=== PATIENT | male | born 1945 | race Caucasian/White ===

== ENCOUNTER 2019-12-09 10:37 | Outpatient (CLI) | payer MEDICARE, SELFPAY ==
--- NOTE | ~2019-12-09 | MR_ITS ---
EXAMINATION: MR lumbar spine wo con DATE: 12/09/2019 11:58 INDICATION: Low back pain. TECHNIQUE: Magnetic resonance imaging (MRI) of the lumbar spine was performed without intravenous con trast. Sequences included sagittal T2-weighted FSE, sagittal T2-weighted FS FSE, sagittal T1-weighted FSE, and axial T2-weighted FSE. COMPARISON: Lumbar spine MRI 12/12/2017 FINDINGS: There is 10 degrees dextroscoliosis of lumbar spine. There are chronic bilateral L5 pars de fects. There is 3 mm retrolisthesis of L1 on L2, L2 on L3, and L3 on L4, 5 mm retrolisthesis of L4 on L5, and 4 mm anterolisthesis of L5 on S1. There is mild chronic anterior wedging of T12 vertebral alicja dy. There is severely decreased disc height at L1-L2, moderately decreased disc height at L2-L3, mild ly decreased disc height at L3-L4, and moderately decreased disc height at L4-L5 and L5-S1. The dista l spinal cord signal intensity is normal. The conus medullaris is at T12-L1. The following disc level s are specifically discussed: L1-L2: The disc is bulging. There is moderate bilateral facet joint osteoarthritis. There is mild rig ht and moderate left neural foraminal stenosis. There is moderate central canal stenosis. L2-L3: The disc is bulging and has an annular fissure. There is severe right and moderate left facet joint osteoarthritis. There is mild right and moderate left neural foraminal stenosis. There is mild central canal stenosis. L3-L4: The disc is bulging and has an annular fissure. There is mild bilateral facet joint osteoarthr itis. There is moderate bilateral neural foraminal stenosis. There is moderate central canal stenosis . L4-L5: The disc is bulging and has an annular fissure. There is severe bilateral facet joint osteoart hritis. There is moderate bilateral neural foraminal stenosis. There is mild central canal stenosis. L5-S1: The disc is bulging and has an annular fissure. There is severe bilateral facet joint osteoart hritis. There is mild bilateral neural foraminal stenosis. There is mild central canal stenosis. IMPRESSION: 1. Severe lumbar spondylosis, stable from 12/12/2017. 2. Chronic bilateral L5 pars defects with grade 1 anterolisthesis of L5 on S1, stable from 12/12/2017. 3. Lumbar dextroscoliosis. Reviewed, dictated and finalized at location A.
== END 2019-12-09 10:38 | disposition home or self-care (01) ==
PROVIDERS: PCP Family Medicine; Visit Provider Internal Medicine Rheumatology
DX: M54.5 Low back pain (principal); M47.816 Spondylosis without myelopathy or radiculopathy, lumbar region; M43.17 Spondylolisthesis, lumbosacral region; M41.86 Other forms of scoliosis, lumbar region
CPT/HCPCS: 72148

== ENCOUNTER 2020-11-21 09:09 | Outpatient (CLI) | payer MEDICARE, SELFPAY ==
[2020-11-21 10:35] LABS: Creatine Kinase 121 U/L (55-170); Magnesium 1.9 mg/dL (1.6-2.3); Uric Acid 5.1 mg/dL (3.5-8.5)
[2020-11-21 10:38] LABS: Rheumatoid Factor < 8.6 IU/ML (<12)
[2020-11-21 11:09] LABS: Erythrocyte Sedimentation Rate 4 mm/hr (0-20)
[2020-11-21 11:41] LABS: Folic Acid 11.8 ng/mL (2.76->20)
[2020-11-21 12:06] LABS: Vitamin D 25 Hydroxy 35.6 ng/mL
[2020-11-24 22:09] LABS: Albumin 4.2 g/dL (3.8-4.8); Alpha 1 Globulin 0.3 g/dL (0.2-0.3); Alpha 2 Globulin 0.6 g/dL (0.5-0.9); Beta 1 Globulin 0.4 g/dL (0.4-0.6); Gamma Globulin 0.8 g/dL (0.8-1.7); Protein, Total 6.6 g/dL (6.1-8.1)
[2020-11-28 16:28] LABS: Reference Lab Test Result 1.05
[2020-12-04 07:39] LABS: Creatinine, Random Urine 160 mg/dL (20-320); Total Protein/Creatinine Ratio 88 mg/g creat (22-128)
[2020-12-15 15:06] LABS: Reference Lab Test Name 14-3-3 eta Protein
== END 2020-11-21 09:10 | disposition home or self-care (01) ==
PROVIDERS: PCP Family Medicine; Visit Provider Internal Medicine Rheumatology
DX: E53.8 Deficiency of other specified B group vitamins (principal); G62.9 Polyneuropathy, unspecified; R53.83 Other fatigue; M19.90 Unspecified osteoarthritis, unspecified site; M79.10 Myalgia, unspecified site; R73.09 Other abnormal glucose; E55.9 Vitamin D deficiency, unspecified
CPT/HCPCS: 36415; 82306; 82550; 82570; 82607; 82728; 82746; 83036; 83520; 83735; 84155; 84156; 84165; 84166; 84550; 85652; 86038; 86335; 86430

== ENCOUNTER 2022-09-01 10:42 | Outpatient (CLI) | payer MEDICARE, SELFPAY ==
--- NOTE | ~2022-09-01 | US_ITS ---
US soft tissue UE LT 09/01/2022 11:28 Indication: Palpable left breast abnormality with tenderness for 7 days per Procedure: High-resolution Limited ultrasound of the dorsal aspect of the left wrist in the area palp able concern Comparison: No prior studies for comparison. Findings: In the area of palpable concern there is a round heterogeneous mass measuring 12 x 10 x 9 m m with some irregular margins. There is internal vascularity. No significant posterior features. Impression: 1: Complex heterogeneous 12 mm mass in the area of palpable concern with internal vascularity. Findin gs nonspecific. Consider percutaneous biopsy to exclude malignancy. Reviewed, dictated and finalized at location A. EPSY PHYSICIAN Impression: 1: Complex heterogeneous 12 mm mass in the area of palpable concern with internal control analyst al vascularity. Findings nonspecific. Consider percutaneous biopsy to exclude m alignancy.
== END 2022-09-01 10:43 | disposition home or self-care (01) ==
PROVIDERS: PCP Family Medicine; Visit Provider Family Medicine
DX: R22.32 Localized swelling, mass and lump, left upper limb (principal)
CPT/HCPCS: 76882

== ENCOUNTER 2022-09-15 12:39 | Outpatient (CLI) | payer MEDICARE, SELFPAY ==
--- NOTE | ~2022-09-15 | US_ITS ---
EXAMINATION: US FNA w image guidance DATE: 09/15/2022 13:58 INDICATION: Left forearm mass. TECHNIQUE: The procedure and its benefits and risks were discussed with the patient. Risks specifically discusse d included bleeding and infection. The patient verbalized understanding of the risks and agreed to pr oceed. The left forearm was prepped and draped in the usual sterile manner. 1% lidocaine was used fo r local anesthesia. 6 passes were made with a 25G needle into the lesion under ultrasound guidance. There were no immediate complications. FINDINGS: Grayscale ultrasound images demonstrate needles advanced into a 1.2 cm hypoechoic subcutaneous mass i n left forearm for biopsy. IMPRESSION: 1. Ultrasound-guided fine needle aspiration of a 1.2 cm subcutaneous mass in left forearm. Reviewed, dictated and finalized at location A. PAPER EMBOSSER HELPER IMPRESSION: 1. Ultrasound-guided fine needle aspiration of a 1.2 cm subcutaneous mass in l eft forearm.
== END 2022-09-15 12:40 | disposition home or self-care (01) ==
LOC: ANHIMG 12:41
PROVIDERS: PCP Family Medicine; Visit Provider Family Medicine
DX: R22.32 Localized swelling, mass and lump, left upper limb (principal)
CPT/HCPCS: 10005; 88108; 88173; 88305

== ENCOUNTER 2022-10-20 08:54 | Outpatient (CLI) | payer MEDICARE, SELFPAY ==
--- NOTE | ~2022-10-20 | US_ITS ---
EXAMINATION: US biopsy lymph node DATE: 10/20/2022 10:04 INDICATION: Chronic mass at the dorsal aspect of the distal left forearm with prior nondiagnostic fin e-needle aspiration TECHNIQUE: The procedure including the risks and benefits was discussed with the patient. Risks discu ssed included bleeding and infection. The patient understood the risks and agreed to proceed. The sk in overlying the region of concern at the distal left forearm was prepped and draped in usual sterile fashion. Anesthetic was administered with 1% lidocaine subcutaneously. An 18 gauge core biopsy nee dle was advanced under continuous ultrasound observation to the lesion of interest. 3 core biopsy sp ecimens were obtained. The needle was removed and the entry site was cleaned and dressed. Post proc edure ultrasound demonstrated no hemorrhage. FINDINGS: Ultrasound images demonstrate biopsy needle advanced through a 1.2 cm hypoechoic ovoid subc utaneous mass with well-defined smooth margins at the region of concern. IMPRESSION: 1. Successful Ultrasound-guided biopsy of a 1.2 cm hypoechoic subcutaneous mass at the origin of the distal left forearm. Reviewed, dictated and finalized at location A. BILITATION SERVICES MANAGER
== END 2022-10-20 08:55 | disposition home or self-care (01) ==
PROVIDERS: PCP Family Medicine; Visit Provider Nurse Practitioner
DX: R93.89 Abnormal findings on diagnostic imaging of other specified body structures (principal)
CPT/HCPCS: 38505; 76942; 88305; 88342

== ENCOUNTER 2023-03-23 11:42 | Outpatient (CLI) | payer MEDICARE, SELFPAY ==
--- NOTE | 2023-03-23 12:16 | ECG_ITS ---
Measurements Intervals [place] Rate: 62 P: 49 MO: 236 QRS: 4 QRSD: 90 T: 76 QT: 392 QTc: 399 Interpretive Statements SINUS RHYTHM WITH FIRST DEGREE AV BLOCK NONSPECIFIC T-WAVE ABNORMALITY COMPARED TO ECG 11/12/2018 12:15:47 T-WAVE ABNORMALITY NOW PRESENT Electronically Signed On 03-23-2023 13:43:40 CDT by Khalida Peguero M.D.
== END 2023-03-23 11:43 | disposition home or self-care (01) ==
PROVIDERS: PCP Family Medicine; Visit Provider Family Medicine
DX: Z01.818 Encounter for other preprocedural examination (principal); I44.0 Atrioventricular block, first degree
CPT/HCPCS: 93005

== ENCOUNTER 2023-05-16 09:02 | Outpatient (CLI) | payer MEDICARE, SELFPAY ==
--- NOTE | ~2023-05-16 | NM_ITS ---
EXAMINATION: NM anastacio stress w perfusion DATE: 05/16/2023 12:57 INDICATION: Other forms of dyspnea. TECHNIQUE: Rest images were obtained following intravenous administration of 8.6 mCi Tc99m tetrofosmi n (Myoview). The patient was infused intravenously with Lexiscan (regadenoson). Then, 29 mCi Tc99m te trofosmin (Myoview) was administered intravenously, and stress images were obtained. Data was reconst ructed into short axis and horizontal and vertical long axis SPECT images. Gated SPECT images were al so obtained. COMPARISON: None. FINDINGS: There is no definite reversible or fixed perfusion abnormality to suggest ischemia or infar ction. There is no segmental wall motion abnormality. Left ventricular ejection fraction measures > 70%. IMPRESSION: 1. No definite ischemia or infarct. 2. Normal left ventricular ejection fraction measuring >70%. Reviewed, dictated and finalized at location A.
--- NOTE | 2023-05-16 09:36 | EST_ITS ---
Patient Info Name: Randy Tomlinson Age: 78 years : 1945 Gender: Male Ht: 68 in Wt: 220 lbs BSA: 2.22 m2 HR: 77 bpm BP: 147 / 93 mmHg Heart Rhythm: Sinus Rhythm Exam Date: 05/16/2023 9:56 AM Exam Location: [facility] Stress Patient Status: Outpatient Admit Date: 05/16/2023 Staff Ordering Physician: Karsten Goldberg DO Attending Provider: Karsten Goldberg DO Exercise Technologist: Alison Vargas CT Exercise Physician: Karsten Goldberg DO Exam Type: CA stress anastacio w NM Study Info Indications Z82.49 - Family history of ischemic heart disease and other diseases of the circulatory system A regadenoson stress test was performed. Summary 1. 1. Negative lexiscan stress test for ischemic ST changes by ECG criteria. 2. 2. Stable hemodynamics throughout the test. 3. 3. Nuclear scan to follow and will be reported separately. Please correlate with it. 4. 4. Patient informed of the above results. Protocol: Lexiscan Stress ECG Details Stage: REST Duration (min): 4 min : 34 sec HR (bpm): 80 SBP (mmHg): 147 DBP (mmHg): 93 Stage: REST Duration (min): 14 min : 25 sec HR (bpm): 75 SBP (mmHg): 147 DBP (mmHg): 93 Stage: STAGE 1 Duration (min): 0 min : 59 sec HR (bpm): 86 SBP (mmHg): 139 DBP (mmHg): 85 Stage: RECOVERY Duration (min): 1 min : 0 sec HR (bpm): 95 SBP (mmHg): 139 DBP (mmHg): 85 Stage: RECOVERY Duration (min): 2 min : 0 sec HR (bpm): 89 SBP (mmHg): 139 DBP (mmHg): 85 Stage: RECOVERY Duration (min): 3 min : 0 sec HR (bpm): 84 SBP (mmHg): 140 DBP (mmHg): 74 Stage: RECOVERY Duration (min): 4 min : 0 sec HR (bpm): 86 SBP (mmHg): 140 DBP (mmHg): 74 Stage: RECOVERY Duration (min): 4 min : 12 sec HR (bpm): 82 SBP (mmHg): 140 DBP (mmHg): 74 Rest HR: 75 bpm Peak HR: 99 bpm Rest Sys BP: 147 mmHg Peak Sys BP: 140 mmHg Max Pred HR: 144 bpm % Max Pred HR: 69 % Target HR: 122 bpm Max RPP: 13,860 bpm*mmHg Termination Reason: Completed protocol Cardiac Symptoms: Shortness of breath Total Time: 1 min : 0 sec Rest Ortega BP: 93 mmHg Peak Ortega BP: 74 mmHg Total Dose: 0.4 mg Resting ECG Sinus rhythm. Stress ECG No ST changes. Arrhythmias None. Report Signatures
== END 2023-05-16 09:03 | disposition home or self-care (01) ==
PROVIDERS: PCP Family Medicine; Visit Provider Internal Medicine Cardiovascular Disease
DX: R06.09 Other forms of dyspnea (principal)
CPT/HCPCS: 78452; 93017; A9502; J2785

== ENCOUNTER 2023-05-26 12:46 | Outpatient (CLI) | payer MEDICARE, SELFPAY ==
--- NOTE | ~2023-05-26 | CT_ITS ---
EXAMINATION: CT LE RT wo con DATE: 05/26/2023 13:38 INDICATION: Right knee osteoarthritis. Preoperative planning. TECHNIQUE: High resolution computed tomography (CT) of the left lower limb was performed without intr avenous contrast. Additional sagittal and coronal reconstructions were performed. Automated exposure control and iterative reconstruction technique were employed. The dose-length product was 2354.83 mGy -cm. COMPARISON: Knee radiographs dated 04/29/2020 FINDINGS: Right total hip arthroplasty which is in near-anatomic alignment. Tricompartmental osteoarthritis at the right knee, severe in the medial compartment where there is essentially [id number]-[id number] apposition, subarticular eburnation and early remodeling of the anterior two thirds of the medial tibial plateau. There is approximately 5 mm lateral subluxation and 6 degree varus angulation at the right knee like ly secondary to severe medial compartment osteoarthritis. Mild osteoarthritis at the left ankle. Ther e are couple small bone island at the distal tibia and in the calcaneus. No fractures. No hip, knee o r ankle joint effusions. There are few diverticula along the visualized sigmoid colon. Prostatomegaly . Small bilateral fat-containing inguinal hernias. No pathologically enlarged pelvic or inguinal lymp hadenopathy. IMPRESSION: 1. Severe medial compartment predominant osteoarthritis at the right knee. Reviewed, dictated and finalized at location A.
== END 2023-05-26 12:47 | disposition home or self-care (01) ==
LOC: ANHIMG 12:48
PROVIDERS: PCP Family Medicine; Visit Provider Orthopaedic Surgery
DX: M17.11 Unilateral primary osteoarthritis, right knee (principal)
CPT/HCPCS: 73700

== ENCOUNTER 2023-05-30 07:30 | Outpatient (CLI) | payer MEDICARE, SELFPAY ==
[2023-05-30 09:13] LABS: Hematocrit 44.5 % (42.0-52.0); Hemoglobin 15.3 g/dL (14.0-18.0)
[2023-05-30 09:25] LABS: Urine Cotinine NEGATIVE
[2023-05-30 09:27] LABS: Albumin Level 4.3 g/dL (3.5-5.1); Estimated Glomerular Filt Rate > 60; Glucose 122 mg/dL (65-110)
[2023-05-30 10:04] LABS: Hemoglobin A1C 5.4 % (<5.7)
== END 2023-05-30 07:31 | disposition home or self-care (01) ==
PROVIDERS: PCP Family Medicine; Visit Provider Orthopaedic Surgery
DX: E78.2 Mixed hyperlipidemia (principal); M17.11 Unilateral primary osteoarthritis, right knee; M47.812 Spondylosis without myelopathy or radiculopathy, cervical region; R73.03 Prediabetes
CPT/HCPCS: 80307; 82040; 82565; 82947; 83036; 85014; 85018

== ENCOUNTER 2023-07-05 07:51 | Outpatient (CLI) | payer MEDICARE, SELFPAY ==
[2023-07-05 09:26] LABS: Basophils Percent Auto 0.4 % (0.2-1.2); Eosinophils Absolute Auto 0.1 K/mm3 (0-0.3); Eosinophils Percent Auto 3.1 % (0-4.4); Hematocrit 44.9 % (42.0-52.0); Hemoglobin 15.3 g/dL (14.0-18.0); Immature Granulocyte Absolute 0.01 K/mm3 (0.00-0.031); Immature Granulocyte Percent A 0.2 % (0-0.5); Lymphocytes Absolute Auto 1.03 K/mm3 (0.9-3.2); Lymphocytes Percent Auto 22.7 % (18.3-44.2); Mean Corpuscular HGB Conc 34.1 g/dl (32-36); Mean Corpuscular Hemoglobin 34.3 pg (26-34); Mean Corpuscular Volume 100.7 fl (80-100); Mean Platelet Volume 10.3 fl (7.4-10.4); Monocytes Absolute Auto 0.4 K/mm3 (0.1-0.6); Monocytes Percent Auto 7.7 % (2.6-8.5); Neutrophils Percent Auto 65.9 % (45.5-73.1); Platelet Count Result 177 k/mm3 (150-375); Red Blood Count 4.46 M/mm3 (4.6-6.20); Red Cell Distribution Width 12.6 % (11.5-14.5); White Blood Count 4.5 K/mm3 (4.5-10.0)
[2023-07-05 09:34] LABS: Urine Cotinine NEGATIVE
[2023-07-05 09:35] LABS: Albumin Level 4.5 g/dL (3.5-5.1); Estimated Glomerular Filt Rate > 60; Glucose 122 mg/dL (65-110)
== END 2023-07-05 07:52 | disposition home or self-care (01) ==
LOC: ANHSURGERY 07:57
PROVIDERS: PCP Family Medicine; Visit Provider Orthopaedic Surgery
DX: M17.11 Unilateral primary osteoarthritis, right knee (principal); Z01.818 Encounter for other preprocedural examination
CPT/HCPCS: 80307; 82040; 82565; 82947; 85025; 87081

== ENCOUNTER 2023-11-07 10:58 | Outpatient (CLI) | payer MEDICARE, SELFPAY ==
--- NOTE | 2023-11-07 11:10 | ECG_ITS ---
Measurements Intervals [place] Rate: 69 P: 53 TN: 251 QRS: 6 QRSD: 91 T: 78 QT: 383 QTc: 413 Interpretive Statements SINUS RHYTHM WITH FIRST DEGREE AV BLOCK COMPARED TO ECG 03/23/2023 12:22:56 NO SIGNIFICANT CHANGES Electronically Signed On 11-07-2023 13:52:22 PROGRAM DIRECTOR CABLE TELEVISION by Marianela Rodriguez M.D.
== END 2023-11-07 10:59 | disposition home or self-care (01) ==
LOC: ANHCARD 11:01
PROVIDERS: PCP Family Medicine; Visit Provider Family Medicine
DX: Z01.810 Encounter for preprocedural cardiovascular examination (principal); I44.0 Atrioventricular block, first degree
CPT/HCPCS: 93005

== ENCOUNTER 2023-11-16 06:50 | Outpatient (CLI) | payer MEDICARE, SELFPAY ==
[2023-11-16 07:55] LABS: Alanine Aminotransferase 27 U/L (6-50); Albumin Level 3.8 g/dL (3.5-5.1); Alkaline Phosphatase 84 U/L (38-126); Anion Gap 5 mmol/L (8-16); Aspartate Amino Transferase 29 U/L (17-59); Bilirubin,Total 0.7 mg/dL (0.2-1.3); Blood Urea Nitrogen 20 mg/dL (9-20); Calcium 8.6 mg/dL (8.4-10.2); Carbon Dioxide 29 mmol/L (22-30); Chloride 106 mmol/L (98-107); Cholesterol 153 mg/dL (0-200); Estimated Glomerular Filt Rate > 60; Glucose 129 mg/dL (65-110); HDL Direct 33 mg/dL; Sodium 140 mmol/L (137-145); Triglycerides 225 mg/dL (<150)
[2023-11-16 08:07] LABS: LDL Cholesterol Direct 78 mg/dL
[2023-11-16 08:09] LABS: Hemoglobin A1C 5.8 % (<5.7)
[2023-11-16 08:27] LABS: Prostate Specific Antigen 2.8 ng/mL (< OR = 4.0)
== END 2023-11-16 06:51 | disposition home or self-care (01) ==
PROVIDERS: PCP Family Medicine; Visit Provider Family Medicine
DX: E66.9 Obesity, unspecified (principal); E78.2 Mixed hyperlipidemia; I10 Essential (primary) hypertension; R73.03 Prediabetes; Z12.5 Encounter for screening for malignant neoplasm of prostate
CPT/HCPCS: 36415; 80053; 80061; 83036; 84153; 84443; G0103

== ENCOUNTER 2023-12-11 12:21 | Outpatient (CLI) | payer MEDICARE, SELFPAY ==
[2023-12-11 13:10] LABS: Basophils Percent Auto 0.4 % (0.2-1.2); Eosinophils Absolute Auto 0.2 K/mm3 (0-0.3); Eosinophils Percent Auto 2.9 % (0-4.4); Hematocrit 43.3 % (42.0-52.0); Hemoglobin 14.8 g/dL (14.0-18.0); Immature Granulocyte Absolute 0.01 K/mm3 (0.00-0.031); Immature Granulocyte Percent A 0.2 % (0-0.5); Lymphocytes Absolute Auto 1.12 K/mm3 (0.9-3.2); Lymphocytes Percent Auto 20.6 % (18.3-44.2); Mean Corpuscular HGB Conc 34.2 g/dl (32-36); Mean Corpuscular Hemoglobin 33.5 pg (26-34); Mean Platelet Volume 10.2 fl (7.4-10.4); Monocytes Absolute Auto 0.5 K/mm3 (0.1-0.6); Monocytes Percent Auto 8.6 % (2.6-8.5); Neutrophils Absolute Auto 3.7 K/mm3 (1.3-6.7); Neutrophils Percent Auto 67.3 % (45.5-73.1); Platelet Count Result 204 k/mm3 (150-375); Red Blood Count 4.42 M/mm3 (4.6-6.20); Red Cell Distribution Width 12.8 % (11.5-14.5); White Blood Count 5.4 K/mm3 (4.5-10.0)
[2023-12-11 13:17] LABS: Urine Cotinine NEGATIVE
[2023-12-11 16:22] LABS: MRSA (PCR) NOT DETECTED (NOT DETECTE)
== END 2023-12-11 12:22 | disposition home or self-care (01) ==
LOC: ANHSURGERY 12:27
PROVIDERS: PCP Family Medicine; Visit Provider Orthopaedic Surgery
DX: M17.11 Unilateral primary osteoarthritis, right knee (principal); Z01.818 Encounter for other preprocedural examination; Z20.822 Contact with and (suspected) exposure to COVID-19
CPT/HCPCS: 80307; 85025; 86850; 86900; 86901; 87641

== ENCOUNTER 2023-12-12 01:41 | Day surgery (SDC) | payer MEDICARE, SELFPAY ==
[2023-07-05 08:19] VITALS: BMI 34.7
--- NOTE | 2023-07-05 08:37 | PC.NURSE ---
Report to the Outpatient Waiting Room, entrance under the green pavilion located off [facility], at time __0830 on date _08/08/23 . Planned Procedure Time: __1030 . Time changes happen often and if your time is changed the preop area will call you the afternoon before. - You and your visitor will be asked to self-screen and do not enter if you have any COVID symptoms. - A mask is optional within the hospital at this time. Patients may have clear liquids (water, carbonated beverages, clear teas, apple juice) until 3 hours prior to surgery with a maximum of 20 ounces. - No food from midnight until time of surgery - Infants may have breast milk until 4 hours before surgery, infant formula 6 hours prior to surgery. - Children will be allowed to drink immediately following surgery. If applicable, please bring a bottle or sippy cup to assist with drinking. Juice, water, soda, and popsicles are readily available. For infants on formula, please bring formula the day of surgery. Pacifiers are allowed. Take the following medications with a SIP of water the morning of surgery: __DULOXETINE,GABAPENTIN,SERTRALINE DO NOT STOP ANY OF YOUR OTHER PRESCRIPTION MEDICATIONS PRIOR TO SURGERY ?EXCEPT THE FOLLOWING Medications to discontinue per physician ASPIRIN 7 DAYS PRE OP PER DR CHATMAN.LAST DOSE 07/31/23.ALL VITAMINS AND SUPPLEMENTS 3 DAYS PRE OP .LAST DOSE 08/04/23 TOTAL JOINT CLASS 07/05/23 AT 10 AM Please no make-up, nail latvian, hairspray, perfume, deodorant, or body powder the day of surgery. No jewelry (including any body piercings) or valuables the day of surgery, leave them at home. Please take a shower or bath the night before, or the morning of, surgery with an antibacterial soap. Wear comfortable, loose fitting clothing. Children are encouraged to wear pajamas. - Jewelry must be removed prior to entering the operating room. Rings and piercings that are not removed may be cut off. - The hospital will not accept responsibility for valuables. - Please leave all valuables, including medications, at home the day of surgery. If you are going home after surgery, a licensed airport driver must drive you home. - NO public transportation without another adult if you receive anesthesia. - We recommend that an adult stay with you for 24 hours following discharge. - We also recommend that you do not drive, make important decision, drink alcoholic beverages, or take any drugs that were not prescribed by your health care provider for at least 24 hours after your discharge time. For Pediatric surgeries, we recommend two adults accompany the child home. Follow any additional instructions given to you from your surgeon. If you or anyone in your household have experienced Covid symptoms in the past week, please notify your surgeon or the nurse liaison at the phone number below for possible testing. VERBAL AND WRITTEN instructions given to ___PATIENT and asked if any additional questions and then verbalized understanding. Patient advised to call surgeon office or pre surgery nurse liaison [phone] if any additional questions.
[2023-07-05 08:59] VITALS: BP 129/82; PULSE 70; RESP 18; TEMP 36.7; O2SAT 99
--- NOTE | 2023-12-04 14:18 | PC.NURSE ---
Report to the Outpatient Waiting Room, entrance under the green pavilion located off [facility], at time _0630 on date __12/12/23 . Planned Procedure Time: ___829 . Time changes happen often and if your time is changed the preop area will call you the afternoon before. - You and your visitor will be asked to self-screen and do not enter if you have any COVID symptoms. - A mask is optional within the hospital at this time. Patients may have clear liquids (water, carbonated beverages, clear teas, apple juice) until 3 hours prior to surgery( 5:30 AM) with a maximum of 20 ounces. - No food from midnight until time of surgery - Infants may have breast milk until 4 hours before surgery, formula 6 hours prior to surgery. - Children will be allowed to drink immediately following surgery. If applicable, please bring a bottle or sippy cup to assist with drinking. Juice, water, soda, and popsicles are readily available. For infants on formula, please bring formula the day of surgery. Pacifiers are allowed. Take the following medications with a SIP of water the morning of surgery: ___DULOXETINE,GABAPENTIN,SERTRALINE DO NOT STOP ANY OF YOUR OTHER PRESCRIPTION MEDICATIONS PRIOR TO SURGERY ?EXCEPT THE FOLLOWING Medications to discontinue per physician __HOLD ASPIRIN 7 DAYS PRE OP PER DR CHATMAN LAST DOSE 12/04/23. HOLD ALL VITAMINS AND SUPPLEMENTS 3 DAYS PRE OP .LAST DOSE 12/08/23 [address] CONTINUE CELEBREX PER DR CHATMAN Please no make-up, nail romansh, hairspray, perfume, deodorant, or body powder the day of surgery. No jewelry (including any body piercings) or valuables the day of surgery, leave them at home. Please take a shower or bath the night before, or the morning of, surgery with an antibacterial soap. Wear comfortable, loose fitting clothing. Children are encouraged to wear pajamas. - Jewelry must be removed prior to entering the operating room. Rings and piercings that are not removed may be cut off. - The hospital will not accept responsibility for valuables. - Please leave all valuables, including medications, at home the day of surgery. If you are going home after surgery, a licensed route salesman and driver must drive you home. - NO public transportation without another adult if you receive anesthesia. - We recommend that an adult stay with you for 24 hours following discharge. - We also recommend that you do not drive, make important decision, drink alcoholic beverages, or take any drugs that were not prescribed by your health care provider for at least 24 hours after your discharge time. For Pediatric surgeries, we recommend two adults accompany the child home. Follow any additional instructions given to you from your surgeon. If you or anyone in your household have experienced Covid symptoms in the past week, please notify your surgeon or the nurse liaison at the phone number below for possible testing. Telephone instructions given to _PATIENT and asked if any additional questions and then verbalized understanding. Patient advised to call surgeon office or pre surgery nurse liaison [phone] if any additional questions.
[2023-12-04 14:23] VITALS: BMI 34.7
--- NOTE | 2023-12-04 14:30 | PC.NURSE ---
PT STATES NO CHANGE IN HEALTH HX SINCE LAST INTERVIEW
--- NOTE | 2023-12-11 11:53 | WPDANESEPPF ---
Anes - Initial Pre Proc Eval Procedure: Operation Date: 12/12/23 08:30 Proposed Procedures p Right Total Knee Arthroplasty - Jaime Hall MD Date/Time: 12/11/23 11:53 Surgeon: Jaime Hall MD Pre Op Diagnosis: primary oa right knee Patient Data Age: 78 Gender: M Height: 1.7 m Weight: 100.7 kg Last Vital Signs Temp 36.7 C 07/05/23 08:59 Pulse 70 07/05/23 08:59 Resp 18 07/05/23 08:59 BP 129/82 07/05/23 08:59 Pulse Ox 99 07/05/23 08:59 O2 Del Method Room Air 07/05/23 08:59 Allergies Allergy/AdvReac Type Severity Reaction Status Date / Time No Known Allergies Allergy Verified 12/12/23 06:54 Home Medications Medication Instructions Recorded Confirmed Type aspirin 81 mg tablet,delayed 81 mg PO DAILY 09/10/19 12/12/23 History release (Adult Low Dose Aspirin) cholecalciferol (vitamin D3) 25 1,000 unit PO 3XW 09/10/19 12/12/23 History mcg (1,000 unit) capsule donepezil 10 mg tablet 10 mg PO DAILY 09/10/19 12/12/23 History hydroxyzine HCl 10 mg tablet 5 mg PO DAILY 09/10/19 12/12/23 History yifttbli-evn-aexqn 200 mcg-lycop 1 tablet PO DAILY 09/10/19 12/12/23 History 175 mcg-lutei 250 mcg-herb 178 tablet (Edward Multivitamin For Men) omega 6-ofk-cly-fish oil 1,000 mg 1 cap PO BID 09/10/19 12/12/23 History (120 mg-180 mg) capsule (Fish Oil) simvastatin 10 mg tablet 10 mg PO DAILY 09/10/19 12/12/23 History tamsulosin 0.4 mg capsule 0.4 mg PO DAILY 09/10/19 12/12/23 History sertraline 100 mg tablet 200 mg PO BID 04/29/20 12/12/23 History celecoxib 200 mg capsule 200 mg PO DAILY #7 caps 05/22/20 12/12/23 Rx Rollator Walker #1 ea 03/02/23 12/04/23 Rx duloxetine 60 mg capsule,delayed 60 mg PO DAILY #14 caps 06/15/23 12/12/23 Rx release gabapentin 300 mg capsule 900 mg PO DIRECTED #35 caps 08/01/23 12/12/23 Rx lisinopril 10 mg tablet See Rx Instructions PO DAILY 10/12/23 12/12/23 History Patient hx anesthesia problems: none Family hx anesthesia problems: none Results Review: All pre-operative results and documents have been reviewed as part of the pre-operative evaluation. [facility] Past Medical History Medical History (Updated 12/11/23 @ 11:54 by Sanchez Barajas DO) Anxiety Carpal tunnel syndrome on both sides Hypertension Mild cognitive impairment, so stated Mixed hyperlipidemia Obstructive sleep apnea (adult) (pediatric) Surgical History Surgical History (Updated 12/11/23 @ 11:54 by Sanchez Barajas DO) History of cervical spinal surgery C2-7 fusion Family History Family History Father Diabetes mellitus Sibling Diabetes mellitus Hypertension Family history of elevated blood lipids Family history of throat cancer Other Family history of cardiovascular disease Social History Social History Smoking status: Former smoker Tobacco type: cigars Additional smoking assessment comments: SMOKES CIGARS ONE PER WK X 10 YRS. LAST CIGAR 07/01/23 Alcohol intake: current Alcohol use details: ONE DRINK PER MONTH Lack of Transportation: No Lack of Food: Never True Current Housing: I Have Housing Concerned About Future Housing: No Difficulty Paying Gas/Electric Bills: No Difficulty Paying for Meds: No Currently Unemployed: No Education: Bachelor's Degree Difficulty w/ Childcare or Family Care: No Living arrangements: alone Spiritual care concerns: No Anes - Eval Final PreProcedure Day of Procedure 12/11/23 11:53 Patient weight: obese Heart: regular rate and rhythm Lungs: clear to auscultation Airway: Mallampati scale class II Neurological: alert and oriented Last oral intake: >/= 8 hours ASA classification: III Emergent: no Anesthetic plan: proceed Anesthesia type and monitoring: general LMA and standard monitoring Results Review: All pre-operative results and document
[2023-12-12] VITALS (13 sets, daily range): BP systolic 118–144; BP diastolic 58–72; PULSE 62–79; RESP 12–18; TEMP 36.4–36.9; O2SAT 93–100
--- NOTE | ~2023-12-12 | XR_ITS ---
EXAMINATION: [id number] DATE: 12/12/2023 11:03 INDICATION: Postoperative evaluation following right total knee arthroplasty. TECHNIQUE: Anteroposterior and lateral views of the right knee were obtained. COMPARISON: 07/19/2023 FINDINGS: Interval right total knee arthroplasty with patellar resurfacing appears well seated and in near emiliana omic alignment. No fractures identified. Surgical drain with distal tip projecting over the suprapat ellar pouch. Expected small amount of postoperative soft tissue gas. IMPRESSION: 1. Right total knee arthroplasty, negative for postoperative purposes. Reviewed, dictated and finalized at location L.
[2023-12-12] MEDS: ACETAMINOPHEN 500 MG TABLET 1000 MG PO ×3 (07:20→20:51)
--- NOTE | 2023-12-12 07:41 | WPDHPUPDATE1 ---
History and Physical Update Update Date/Time: 12/12/23 07:41 History and Physical has been reviewed, including an updated exam of the patient. There are NO changes in the patient's condition. Risks, benefits, and alternatives have been discussed and questions answered. Patient agrees to proceed with procedure.
[2023-12-12] MEDS: LACTATED RINGERS 1,000 ML 30 ML IV CONT ×2 (08:02→10:45)
--- NOTE | 2023-12-12 08:06 | WPDANESPNB ---
Anes - Peripheral Nerve Block Date/Time: 12/12/23 08:06 I have discussed with the patient/family/POA the placement of a peripheral nerve block for post-operative pain management, including associated risks, benefits, complications, and side effects. Alternative methods of post-operative analgesia were detailed. Questions were solicited and answers provided to the satisfaction of the patient/family/POA. Time-Out: A pre-procedural Time-Out was completed immediately before starting the procedure and confirmed: Patient Identification, Site, Procedure, Patient Position and the Availability of Requisite Equipment. Clinical Indications: Acute post-operative pain management requested by the operative surgeon. Nerve Block Insertion Note Anes-nerve block: adductor canal right Patient position: supine Skin prep: chlorhexidine Needle: 22 gauge, stimulating, insulated echogenic needle. Needle length: 80 mm Technique: ultrasound Injectate: bupivacaine 0.5% with epi 5 mcg/ml (30cc - no epi) Observations: tolerated well Complications: none Procedure start time:: 817 Procedure end time:: 822
[2023-12-12] MEDS: TRANEXAMIC ACID 1,000MG/ISO100 1,000 MG/100 ML BAG 200 MG IVPB (08:08)
[2023-12-12] MEDS: ceFAZolin 2 GM/D5W 50 ML 2 GM/50 ML BAG IVPB ×3 (08:28→23:58)
[2023-12-12] MEDS: SODIUM CHLORIDE 0.9% IV 37.7 ML, MORPHINE SULFATE INJ (*CRX) 2 MG, ROPivacaine HCL 1% 2... INFILTRATE (09:31)
--- NOTE | 2023-12-12 10:43 | P.OP_ITS ---
Procedure Note - Detailed Date of Procedure 12/12/23 Pre-op Diagnosis primary oa right knee Post-op Diagnosis Same Procedure Performed Total knee arthroplasty, right Surgeon Jaime Hall MD Special Services Coordinator Bita Portillo PA-C Anesthesia General and Regional (subsartorial block) Findings Excellent bone quality. Preoperative varus thrust. Large medial release required. PCL very functional. Slight lateral laxity in extension with well- balanced flexion gap. Constitutional varus partially corrected. Description of Procedure The patient was brought to the operating room. A general anesthetic was administered. The leg was prepped and draped in the usual sterile fashion. The limb was elevated and the tourniquet inflated to 300 mmHg during initial exposure, and cementation. A longitudinal incision was created along the medial border of the patella and patellar tendon, and a trivector approach to the knee was performed. A moderate medial release was initially taken. The knee was then flexed. The osteophytes were carefully removed. The intramedullary guide was placed in the femoral canal. The distal femoral resection was then taken with the oscillating saw. The collateral ligaments were carefully protected. The tibia was carefully exposed. The jig was applied, and the proximal tibia was resected according to preoperative plan. The knee was balanced in extension. Appropriate releases were taken where needed. The anterior cruciate ligament and meniscal remnants were removed. The posterior cruciate ligament was preserved. The patella was measured. Patellar resection was carried out with the oscillating saw. The lug holes drilled. The femur was sized and rotation assessed using a combination of gap balancing, posterior referencing, and the AP axis. The 4 in 1 cutting block was used to finish the femoral cuts after equal gaps were assured. The osteophytes were carefully removed from the back of the knee. The knee was copiously irrigated with antibiotic solution periodically throughout the procedure. The meniscal remnants were removed. The spacer block was used to confirm equal flexion and extension gaps. Increased medial release was required with slight needle release 3 passes. The tibia was sized and broached. The bony surfaces were prepared for cementing with pulsatile lavage. The real tibia was cemented into position. The femur was press-fit. The patella was press-fit. Excess cement was carefully removed. Patellar tracking was carefully assessed. Copious irrigation then performed. The wound was closed with #1 Vicryl suture, #2, 2-0, and 3-0 barbed suture, followed by Steri-Strips. A sterile bulky dressing was applied. Meticulous hemostasis was maintained throughout the procedure, and the bipolar cautery device was used. The pain relieving mixture was injected into the periarticular tissues during the procedure. There were no complications. The patient was extubated and brought to the recovery room in stable condition after the application of sterile dressing with Jamal bandage. Implants [place] Triathlon knee system, low profile cemented tibia size 5, press-fit cruciate retaining femoral component size 5, 11 mm cruciate stabilizing polyethylene insert. 32mm asymmetric tritanium metal backed patella component. Estimated Blood Loss 100 Drains No Pathology None sent Complications No immediate complications Condition Stable Disposition PACU [facility] Billing Surgery - Charge Forward: Surgery Billing
--- NOTE | 2023-12-12 13:09 | ADMGEN ---
This patient, Randy Tomlinson, was admitted to 3 Med Surg Room 310-01. Patient/family oriented to hospital policies and general routines including ID bracelet, bed and alarms, visiting hours, pain management, procedures, bathroom and other care routines, personal items, smoking policy, room service/diet, and visiting hours. Information on how to activate the Rapid Response Team has been discussed. Patient/Family are encouraged to report perceived risks to care and to ask questions if they do not understand what they are told or what they should do.
[2023-12-12] MEDS: SODIUM CHLORIDE 0.9% IV 1,000 ML 125 ML IV CONT (13:59)
[2023-12-12] MEDS: SENNA/DOCUSATE SODIUM TABLET 2 TAB PO (14:05)
[2023-12-12] MEDS: polyethylene glycoL 3350 17 GM POWD.PACK PO (14:05)
[2023-12-12] MEDS: TAMSULOSIN HCL 0.4 MG CAPSULE PO (14:06)
[2023-12-12] MEDS: SIMVASTATIN 10 MG TABLET PO (14:06)
[2023-12-12] MEDS: SERTRALINE HCL 50 MG TABLET 200 MG PO ×2 (14:06→20:50)
[2023-12-12] MEDS: ASPIRIN 81 MG ENTERIC TABLET PO ×2 (14:06→20:51)
[2023-12-12] MEDS: DONEPEZIL HCL 10 MG TABLET PO (14:06)
[2023-12-12] MEDS: GABAPENTIN 300 MG CAPSULE 900 MG PO ×2 (14:07→20:51)
[2023-12-12] MEDS: lisinopriL 5 MG TABLET PO (14:07)
[2023-12-12] MEDS: FAMOTIDINE 20 MG TABLET PO ×2 (14:07→20:51)
[2023-12-12] MEDS: DULoxetine HCL 60 MG CAPSULE.DR PO (14:07)
[2023-12-12] MEDS: CYCLOBENZAPRINE HCL 10 MG TABLET PO (14:26)
[2023-12-12] MEDS: oxyCODONE HCL (*CRX) 5 MG TAB IR PO (14:26)
[2023-12-12] MEDS: hydrOXYzine HCL 10 MG TABLET 5 MG PO (15:37)
[2023-12-13 00:25] VITALS: BP 116/62; PULSE 66; RESP 20; TEMP 36.8; O2SAT 94
[2023-12-13 04:58] VITALS: BP 128/62; PULSE 73; RESP 18; TEMP 36.8; O2SAT 96
[2023-12-13] MEDS: ACETAMINOPHEN 500 MG TABLET 1000 MG PO ×3 (05:43→17:27)
[2023-12-13 06:32] LABS: Basophils Percent Auto 0.1 % (0.2-1.2); Eosinophils Absolute Auto 0.1 K/mm3 (0-0.3); Eosinophils Percent Auto 0.6 % (0-4.4); Hematocrit 37.1 % (42.0-52.0); Hemoglobin 12.4 g/dL (14.0-18.0); Immature Granulocyte Absolute 0.03 K/mm3 (0.00-0.031); Immature Granulocyte Percent A 0.4 % (0-0.5); Lymphocytes Absolute Auto 1.06 K/mm3 (0.9-3.2); Mean Corpuscular HGB Conc 33.4 g/dl (32-36); Mean Corpuscular Hemoglobin 33.5 pg (26-34); Mean Corpuscular Volume 100.3 fl (80-100); Mean Platelet Volume 10.3 fl (7.4-10.4); Monocytes Absolute Auto 0.8 K/mm3 (0.1-0.6); Monocytes Percent Auto 9.6 % (2.6-8.5); Neutrophils Absolute Auto 6.2 K/mm3 (1.3-6.7); Neutrophils Percent Auto 76.3 % (45.5-73.1); Platelet Count Result 188 k/mm3 (150-375); Red Cell Distribution Width 13.1 % (11.5-14.5); White Blood Count 8.2 K/mm3 (4.5-10.0)
[2023-12-13 06:42] LABS: Anion Gap 1 mmol/L (8-16); Blood Urea Nitrogen 19 mg/dL (9-20); Carbon Dioxide 30 mmol/L (22-30); Chloride 106 mmol/L (98-107); Estimated CRCL calculation 63 ml/min; Sodium 137 mmol/L (137-145)
[2023-12-13 06:43] LABS: Estimated Glomerular Filt Rate > 60; Glucose 103 mg/dL (65-110)
--- NOTE | 2023-12-13 07:50 | WPDANESPN ---
Anes - Prog Note Post-Op Date/Time: 12/13/23 07:50 Cardiovascular status: normal Respiratory status: normal Airway patency: baseline Mental status: baseline Post-Op hydration status: normal Vital Signs: Last Vital Signs Temp 98.2 F 12/13/23 04:58 Pulse 73 12/13/23 04:58 Resp 18 12/13/23 04:58 BP 128/62 12/13/23 04:58 Pulse Ox 96 12/13/23 04:58 O2 Del Method Room Air 12/12/23 14:00 O2 Flow Rate 8 12/12/23 11:15 Pain Score (VAS): 0/10 I/O: Intake & Output 12/12/23 12/12/23 12/13/23 15:59 23:59 07:59 Intake Total 350 1500 900 Output Total 175 1535 435 Balance 175 -35 465 Laboratory Tests 12/13/23 05:50 12/13/23 05:50 12/13/23 05:50 WBC 8.2 RBC 3.70 L Hgb 12.4 L Hct 37.1 L MCV 100.3 H MCH 33.5 MCHC 33.4 RDW 13.1 Plt Count 188 MPV 10.3 Immature Gran % (Auto) 0.4 Neut % (Auto) 76.3 H Lymph % (Auto) 13.0 L [place] % (Auto) 9.6 H Eos % (Auto) 0.6 Baso % (Auto) 0.1 L Lymph # (Auto) 1.06 [place] # (Auto) 0.8 H Eos # (Auto) 0.1 Baso # (Auto) 0.0 Abs Immat Gran (auto) 0.03 Absolute Neuts (auto) 6.2 Absolute Nucleated RBC 0.000 Nucleated RBC % 0.0 Sodium 137 Potassium 4.0 Chloride 106 Carbon Dioxide 30 Anion Gap 1 L BUN 19 Creatinine 1.00 Estim Creat Clear Calc 63 Estimated GFR > 60 Glucose 103 Calcium 8.0 L Post-procedural complaints: none Patient Feedback: Patient satisfied with anesthetic care.
[2023-12-13] MEDS: CELECOXIB 200 MG CAPSULE PO (08:53)
[2023-12-13] MEDS: SENNA/DOCUSATE SODIUM TABLET 2 TAB PO ×2 (08:53→17:27)
[2023-12-13] MEDS: SERTRALINE HCL 50 MG TABLET 200 MG PO (08:53)
[2023-12-13] MEDS: ASPIRIN 81 MG ENTERIC TABLET PO ×2 (08:53→17:27)
[2023-12-13] MEDS: predniSONE 5 MG TABLET PO (08:53)
[2023-12-13] MEDS: FAMOTIDINE 20 MG TABLET PO (08:54)
[2023-12-13] MEDS: SIMVASTATIN 10 MG TABLET PO (08:54)
[2023-12-13] MEDS: TAMSULOSIN HCL 0.4 MG CAPSULE PO (08:54)
[2023-12-13] MEDS: GABAPENTIN 300 MG CAPSULE 900 MG PO ×2 (08:54→11:53)
[2023-12-13] MEDS: DULoxetine HCL 60 MG CAPSULE.DR PO (08:54)
[2023-12-13] MEDS: hydrOXYzine HCL 10 MG TABLET 5 MG PO (08:54)
[2023-12-13] MEDS: lisinopriL 5 MG TABLET PO (08:54)
[2023-12-13] MEDS: DONEPEZIL HCL 10 MG TABLET PO (08:55)
[2023-12-13] MEDS: CYCLOBENZAPRINE HCL 10 MG TABLET PO (08:55)
[2023-12-13] MEDS: oxyCODONE HCL (*CRX) 5 MG TAB IR PO (08:55)
[2023-12-13] MEDS: polyethylene glycoL 3350 17 GM POWD.PACK PO (08:55)
[2023-12-13] MEDS: ceFAZolin 2 GM/D5W 50 ML 2 GM/50 ML BAG IVPB (09:01)
[2023-12-13 10:25] VITALS: BP 108/55; PULSE 75; RESP 20; TEMP 36.7; O2SAT 100
--- NOTE | 2023-12-13 12:13 | PM.PNORT ---
Progress Note: A&P Assessment and Plan (1) Status post total right knee replacement: Code(s): Z96.651 - Presence of right artificial knee joint Status: Acute (2) Cervical myelopathy: Code(s): G95.9 - Disease of spinal cord, unspecified Status: Acute Plan Postop day 1: Right total knee arthroplasty. Patient tolerated procedure well. No complications. Pain manageable with pain medication. No numbness or tingling. Patient had a lot of bleeding during the closure so a drain was placed. Drain to be removed today. 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 He will need inpatient rehab at discharge. Planning in progress. We had a lengthy discussion regarding postoperative wound care, limitations, expectations, and exercises. Patient shows good understanding. He has had initial physical therapy and is tolerating it well. He has been able to walk a few steps with the walker and with therapy. He is very motivated. DVT prophylaxis: 81 mg baby aspirin b.i.d. for 14 days. Pain medication: Percocet. Patient has followup appointment with Dr. Hall in 3 weeks. Subjective Subjective Date/Time Seen: 12/13/23 12:13 Interval history: Patient resting comfortably in bed. Wearing cpap. Pain controlled. Working well with formal physical therapy. No other complaints. Review of Systems Review of Systems: All systems reviewed & are unremarkable except as noted in HPI and below Constitutional: Constitutional: Denies difficulty sleeping, Denies fatigue, Denies fever(s), Denies headache(s) and Denies night sweats Eyes: Eyes: Denies loss of vision ENT: Denies dizziness, Denies headache(s) and Denies hearing loss Cardiovascular: Cardiovascular: Denies irregular heart rhythm and Denies dyspnea Respiratory: Respiratory: Denies cough and Denies dyspnea Gastrointestinal: Gastrointestinal: Denies change in bowel habits, Denies diarrhea, Denies nausea and Denies vomiting Genitourinary: Genitourinary: Denies dysuria, Denies nocturia and Denies urinary incontinence Musculoskeletal: Musculoskeletal: Denies abnormal gait Neurologic: Denies abnormal gait, Denies dizziness, Denies headache(s) and Denies loss of vision Psychiatric: Psychiatric: Denies anxiety and Denies depression Endocrine: Endocrine: Denies cold intolerance, Denies fatigue and Denies heat intolerance Exam Narrative: 78-year-old overweight male. Resting comfortably in chair. Alert and oriented x3. No acute distress. Wearing compression socks bilaterally. Dressing intact with no drainage. Drain intact. Mild swelling. No ecchymosis. No erythema. No hematoma. No warmth. Range of motion limited due to pain. Quad fires. Calf nontender. Neurologic status intact. No varicosities. Distal pulses palpable. Light touch sensation intact. Good capillary refill. Objective Data Vital Signs Vital Signs: Vital Signs - 24 hr 12/12/23 12:15 12/12/23 12:30 12/12/23 12:57 Temperature Pulse Rate 77 65 Respiratory Rate 16 12 Blood Pressure 136/67 143/69 H Pulse Oximetry 97 94 Oxygen Delivery Room Air Room Air Room Air 12/12/23 12:55 12/12/23 13:25 12/12/23 14:00 Temperature 97.5 F L 97.6 F Pulse Rate 64 63 Respiratory Rate 12 12 Blood Pressure 144/62 H 138/69 Pulse Oximetry 99 98 Oxygen Delivery Room Air 12/12/23 17:53 12/12/23 19:55 12/13/23 00:25 Temperature 98.4 F 98.2 F 98.2 F Pulse Rate 66 79 66 Respiratory Rate 13 18 20 Blood Pressure 130/58 L 118/61 116/62 Pulse Oximetry 100 97 94 Oxygen Delivery 12/13/23 04:58 12/13/23 08:00 12/13/23 10:25 Temperature 98.2 F 98.0 F Pulse Rate 73 75 Respiratory Rate 18 20 Blood Pressure 128/62 108/55 L Pulse Oximetry 96 100 Oxygen Delivery Room Air Intake/Output Intake/Output: Intake & Output 12/10/23 12/11/23 12/12/23 12/13/23 23:59 23:59 23:59 23:59 Intake Total 1850 1670 Output Total 1710
[2023-12-13 14:00] VITALS: BP 110/46; PULSE 72; RESP 22; TEMP 37.1; O2SAT 96
--- NOTE | 2023-12-13 16:23 | PM.DS ---
DS: Admitting Diagnosis Discharge Date 12/13/23 Admitting Diagnosis Knee arthritis. DS: Discharge Diagnosis Discharge Diagnosis (1) Status post total right knee replacement: Code(s): Z96.651 - Presence of right artificial knee joint Status: Acute Assessment and Plan: Postop day 1: Right total knee arthroplasty. Patient tolerated procedure well. No complications. Pain manageable with pain medication. No numbness or tingling. Patient had a lot of bleeding during the closure so a drain was placed. Drain has been removed. No significant bleeding or hematoma. 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 He has a significant gait imbalance and typically uses two canes or a walker to walk. He will need inpatient rehab at discharge. He will be going to inpatient rehab in [place]. We had a lengthy discussion regarding postoperative wound care, limitations, expectations, and exercises with the patient and his family. Patient shows good understanding. He has had initial physical therapy and is tolerating it well. He has been able to walk a few steps with the walker and with therapy. He is very motivated. DVT prophylaxis: 81 mg baby aspirin b.i.d. for 14 days. Pain medication: Percocet. Patient has followup appointment with Dr. Hall in 3 weeks. DS: Summary Hospital Course Hospital Course: Patient tolerated procedure well. Has history of cervical myelopathy and has a significant gait imbalance. Will benefit from inpatient rehab. [facility]. Time Spent with Patient Time attestation: Total time spent providing and/or coordinating discharge services: Exam Narrative: 78-year-old overweight male. Resting comfortably in chair. Alert and oriented x3. No acute distress. Wearing compression socks bilaterally. Dressing intact with no drainage. Drain removed. Dressing from drain with slight bloody discharge. Mild swelling. Mild ecchymosis. No erythema. No hematoma. No warmth. Range of motion limited due to pain. Quad fires. Calf nontender. Neurologic status intact. No varicosities. Distal pulses palpable. Light touch sensation intact. Good capillary refill. DS: Data Data Completed and Pending Labs on day of discharge: Labs from last 24 hours 12/13/23 05:50 WBC 8.2 RBC 3.70 L Hgb 12.4 L Hct 37.1 L MCV 100.3 H MCH 33.5 MCHC 33.4 RDW 13.1 Plt Count 188 MPV 10.3 Immature Gran % (Auto) 0.4 Neut % (Auto) 76.3 H Lymph % (Auto) 13.0 L [place] % (Auto) 9.6 H Eos % (Auto) 0.6 Baso % (Auto) 0.1 L Lymph # (Auto) 1.06 [place] # (Auto) 0.8 H Eos # (Auto) 0.1 Baso # (Auto) 0.0 Abs Immat Gran (auto) 0.03 Absolute Neuts (auto) 6.2 Absolute Nucleated RBC 0.000 Nucleated RBC % 0.0 Sodium 137 Potassium 4.0 Chloride 106 Carbon Dioxide 30 Anion Gap 1 L BUN 19 Creatinine 1.00 Estim Creat Clear Calc 63 Estimated GFR > 60 Glucose 103 Calcium 8.0 L Discharge Plan Discharge Patient Disposition: Home, Self-Care Discharge Instructions: See green instruction sheets Patient Instructions: How to Stop Smoking (DC) Stand Alone Forms: General Discharge Instructions Follow-up/Referrals: Bita Portillo PA [Physician Curing Press Operator] - Discharge Medications: New prednisone 5 mg tablet 5 mg PO DAILY 21 Days Qty: 21 0RF aspirin 81 mg tablet,delayed release (DR/EC) 81 mg PO BID 14 Days Qty: 28 0RF oxycodone-acetaminophen 5-325 mg tablet 1 - 2 tablet PO Q4-6H MDD 6 PRN (Reason: pain) Qty: 30 0RF oxycodone-acetaminophen 5-325 mg tablet 1 - 2 tablet PO Q4-6H MDD 6 PRN (Reason: pain) Qty: 30 0RF Continued sertraline 100 mg tablet 200 mg PO BID lisinopril 10 mg tablet See Rx Instructions PO DAILY Rx Instructions: .5 orally daily; donepezil 10 mg tablet 10 mg PO DAILY omega [id number] oil [Fish Oil] 1,000 mg (120 mg-180 mg) capsule
== END 2023-12-13 18:30 | disposition home or self-care (01) ==
LOC: ANHSURGERY 07:44 → ANH3MEDSUR 12:44
PROVIDERS: Physician Assistant Surgical; PCP Family Medicine; Visit Provider Orthopaedic Surgery
PROC: (CPT 27447; principal; 2023-12-12 08:30)
DX: M17.11 Unilateral primary osteoarthritis, right knee (principal); G89.18 Other acute postprocedural pain; G95.9 Disease of spinal cord, unspecified; I10 Essential (primary) hypertension; E78.2 Mixed hyperlipidemia; G47.33 Obstructive sleep apnea (adult) (pediatric); F41.9 Anxiety disorder, unspecified; G31.84 Mild cognitive impairment of uncertain or unknown etiology; Z79.82 Long term (current) use of aspirin; Z98.1 Arthrodesis status; Z87.891 Personal history of nicotine dependence; E66.9 Obesity, unspecified; Z68.35 Body mass index [BMI] 35.0-35.9, adult
CPT/HCPCS: 27447; 64447; 36415; 73560; 80048; 85025; 97110; 97161; 97166; 97530; 97535; A9270; C1713; C1776; J0171; J0690; J1885; J2250; J2270; J2795; J3010; J7030; J7120; J7512

== ENCOUNTER 2024-03-01 13:15 | Outpatient (RCR) | payer MEDICARE, SELFPAY ==
--- NOTE | 2023-12-29 15:22 | PTOPEVAL1 ---
Assessment and note entered by Dylon Torres, PT Evaluation Information Assessment Status Evaluation Diagnosis Right TKA, Right knee pain , gait deviation Onset 12/12/23 Subjective Information Reports that he was in rehab for 2 weeks and since has been doing very well at home. Lives in home with 1 step to outside. Uses a shower chair and bench. Gets a little increase in pain with exercise but able to improve with rest. Usually floats around a 4/10. Has history of R JOSLYN and Umbilical hernia repair. He has history of cervical stenosis leading to numbness and weakness in hands and riley LEs. Reported Pain Level Pain Score 7: Self Report Assessment PT Clinical Summary Patient presents with typical signs and symptoms of total knee arthroplasty. Overall doing very well with minor deficits in ROM and strength. Will benefit from skilled therapy to address deficits and improve functional mobility and strength to maximize function. No concerns at this time. Plan of Care Interventions Hot Pack/Cold Pack,Manual Therapy,Neuro Re- education,Therapeutic Activities,Therapeutic Exercise PT Services Indicated Yes Treatment Frequency and 2x/week for 10 visits Duration These treatments will address the objective and functional deficits as defined above. The patient will be advanced safely and appropriately in order for the patient to progress towards his/her prior level of function. Additional exercises will be introduced and as well as a comprehensive home exercise program upon discharge, if needed, ?to ensure carryover of functional gains achieved in the clinic. This treatment plan has been reviewed and agreement upon by the patient.
--- NOTE | 2023-12-29 15:22 | OPREHPOC ---
Outpatient Therapy Plan of Care This is a Multidisciplinary Plan of Care that may contain components documented by all disciplines (PT, OT, and ST.) PT Problem 1 PT Problem #1 Knowledge Deficit PT Goal 1 Goal [place] with HEP Target Visit 4 PT Problem 2 PT Problem #2 Edema PT Goal 1 Goal Patient will demonstrate 1+cm of reduction in joint line swelling to promote soft tissue healing Target Visit 8 PT Problem 3 PT Problem #3 Impaired Range of Motion PT Goal 1 Goal Achieve terminal R knee extension to even stride length bilaterally Target Visit 8 PT Goal 2 Goal Patient will achieve 125 degrees of R knee flexion to maximize foot clearance with gait and squat Target Visit 8 PT Goal 1 Goal Patient will ambulate with single point cane in L UE to maximize independence Target Visit 8
--- NOTE | 2024-02-02 14:34 | PTOPPROG ---
Assessment and note entered by Dylon Torres, PT Evaluation Information Assessment Status Evaluation Diagnosis Right TKA, Right knee pain , gait deviation Onset 12/12/23 Subjective Information Reports that he was in rehab for 2 weeks and since has been doing very well at home. Lives in home with 1 step to outside. Uses a shower chair and bench. Gets a little increase in pain with exercise but able to improve with rest. Usually floats around a 4/10. Has history of R JOSLYN and Umbilical hernia repair. He has history of cervical stenosis leading to numbness and weakness in hands and riley LEs. Assessment PT Clinical Summary Patient has seen functional progress in knee ROM, knee strength, and hip strength for functional recovery. no concerns at this time with progress and will continue to benefit from skilled therapy to continue to emphasize functional activity in stairs, squatting, and ambulation with one spc for improved balance and independence. Plan of Care Interventions Hot Pack/Cold Pack,Manual Therapy,Neuro Re- education,Therapeutic Activities,Therapeutic Exercise PT Services Indicated Yes Treatment Frequency and 1x/week for 4 visits Duration These treatments will address the objective and functional deficits as defined above. The patient will be advanced safely and appropriately in order for the patient to progress towards his/her prior level of function. Additional exercises will be introduced and as well as a comprehensive home exercise program upon discharge, if needed, ?to ensure carryover of functional gains achieved in the clinic. This treatment plan has been reviewed and agreement upon by the patient.
--- NOTE | 2024-02-02 14:34 | OPREHPOC ---
Outpatient Therapy Plan of Care This is a Multidisciplinary Plan of Care that may contain components documented by all disciplines (PT, OT, and ST.) PT Problem 1 PT Problem #1 Knowledge Deficit PT Goal 1 Goal [place] with HEP Target Visit 4 Progress Met PT Problem 2 PT Problem #2 Edema PT Goal 1 Goal Patient will demonstrate 1+cm of reduction in joint line swelling to promote soft tissue healing Target Visit 8 Progress Met PT Problem 3 PT Problem #3 Impaired Range of Motion PT Goal 1 Goal Achieve terminal R knee extension to even stride length bilaterally Target Visit 12 Progress Partially Met PT Goal 2 Goal Patient will achieve 125 degrees of R knee flexion to maximize foot clearance with gait and squat Target Visit 8 Progress Met PT Goal 1 Goal Patient will ambulate with single point cane in L UE to maximize independence Target Visit 12 Progress Partially Met
--- NOTE | 2024-03-01 13:55 | PTOPDC ---
Assessment and note entered by Dylon Torres, PT Evaluation Information Assessment Status Discharge Diagnosis Right TKA, Right knee pain , gait deviation Onset 12/12/23 Subjective Information Reports that he has returned to the gym regularly and overall is feeling pretty good with activity. He has been walking with riley canes as he was before surgery and feels most comfortable with that. He is having no pain with the knee but feels he is still struggling with some of his prior neurological issues. Requests discharge at this time. Reported Pain Level Pain Score Mild Pain: Bertrand Aguilera Assessment PT Clinical Summary Patient has met all goals for therapy at this time and is suitable for discharge to [facility] at this time . Patient demonstrates understanding of [facility] and has been compliant. Plan of Care PT Services Indicated D/C to [facility]
== END 2024-03-01 14:47 | disposition home or self-care (01) ==
LOC: ANHGOSHPT 13:15
PROVIDERS: PCP Family Medicine; Visit Provider Orthopaedic Surgery
DX: Z47.1 Aftercare following joint replacement surgery (principal); Z96.651 Presence of right artificial knee joint
CPT/HCPCS: 97016; 97110; 97112; 97161; 97530

== ENCOUNTER 2024-05-17 12:34 | Outpatient (CLI) | payer MEDICARE, SELFPAY ==
--- NOTE | ~2024-05-17 | XR_ITS ---
XR shoulder LT min 2V Ordering provider: Jaime Hall MD History: . M25.512 - Pain in left shoulder, limited rom, no inj . Comparison: Br none FINDINGS: BONES: No acute fracture or dislocation. JOINT SPACES: The acromioclavicular joint shows osteoarthritic changes. The glenohumeral joint shows mild to moderate osteoarthritic changes. SOFT TISSUES: Normal. IMPRESSION: No acute osseous abnormality left shoulder. Osteoarthritic changes of the acromioclavicular joint and glenohumeral joint. Reviewed, dictated and finalized at location A.
== END 2024-05-17 12:35 | disposition home or self-care (01) ==
PROVIDERS: PCP Family Medicine; Visit Provider Orthopaedic Surgery
DX: M19.012 Primary osteoarthritis, left shoulder (principal)
CPT/HCPCS: 73030

== ENCOUNTER 2024-07-04 09:55 | Outpatient (CLI) | payer MEDICARE, SELFPAY ==
--- NOTE | ~2024-07-04 | XR_ITS ---
Right Shoulder Technique: AP and scapular Y views were obtained. Clinical History: Pain Findings: No fracture or dislocation is seen. Osseous alignment is anatomic. There is severe glenohum eral joint degenerative change, joint space narrowing, sclerosis, and prominent inferomedial humeral head osteophyte. There is moderate AC joint degenerative change. Soft tissues are unremarkable. Impression: Severe glenohumeral joint degenerative change. Moderate AC joint degenerative change. Reviewed, dictated and finalized at location . Impression: Severe glenohumeral joint degenerative change. Moderate AC joint degenerative change.
== END 2024-07-04 09:56 | disposition home or self-care (01) ==
PROVIDERS: PCP Family Medicine; Visit Provider Orthopaedic Surgery
DX: M19.011 Primary osteoarthritis, right shoulder (principal)
CPT/HCPCS: 73030